=== PATIENT | female | born 1985 | race Caucasian/White ===

== ENCOUNTER 2022-10-20 09:16 | Emergency (ER) | payer OTHER ==
[~2022-10-20] VITALS: Ht 160 cm; Wt 73.5 kg
[2022-10-20 09:26] VITALS: BP 135/92
--- NOTE | 2022-10-20 09:35 | NUR ---
PT AMBULATED TO ROOM 8
--- NOTE | 2022-10-20 09:36 | NUR ---
MD PEREZ AT BEDSIDE FOR EVALUATION
--- NOTE | 2022-10-20 09:41 | NUR ---
pt swabbed for covid(derrick). handed to lab
--- NOTE | 2022-10-20 09:46 | NUR ---
37YO FEMALE PT C/O COUGH, FEVER, BODY ACHES , CHEST AND ABDOMINAL PAIN X5DAYS. CHEST PAIN W/O RADIATION AND AT MOST WHEN COUGHING OR DEEP INHALATION. ABDOMEN NON TENDER OR DISTENDED. MILD RELIEF AFTER IBUPROFEN , THERAFLU AND OLD RX OF AMOXICIILIN. DRY COUGH PRESENT. CLEAR ALICE LUNG. DENIES N/V/D, CHILLS OR SOB. +FAM SICK AT HOME. PT AAOX4, RESPIRATIONS EVEN AND UNLABORED. 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
--- NOTE | 2022-10-20 09:48 | NUR ---
XRAY AT BEDSIDE
[2022-10-20] MEDS ORDERED: PROM118S5 PO (10:31)
--- NOTE | 2022-10-20 10:35 | NUR ---
Patient discharged with v/s stable. Written and verbal after care instructions FOR VIRAL ILLNESS given and explained. Patient alert, oriented and verbalized understanding of instructions. Ambulatory with steady gait. All questions addressed prior to discharge. ID band removed. Patient advised to follow up with PMD. Rx of PROMETHAZINE given. Opportunity to ask questions provided and answered.
--- NOTE | 2022-10-20 10:36 | NUR ---
The patient's care was reviewed and supervised by Elsa Deshpande RN.
== END 2022-10-20 10:35 | disposition home or self-care (01) ==
LOC: MED 09:16
DX: B34.9 Viral infection, unspecified (principal); Z20.822 Contact with and (suspected) exposure to COVID-19; F17.200 Nicotine dependence, unspecified, uncomplicated; Z90.49 Acquired absence of other specified parts of digestive tract
CPT/HCPCS: 71045; 87426; 99284; Q0092

== ENCOUNTER 2022-12-19 06:47 | Emergency (ER) | payer OTHER ==
[~2022-12-19] VITALS: Ht 160 cm; Wt 74.8 kg
[~2022-12-19 06:47] MED LIST: PROM118S5 PO
[2022-12-19 06:51] VITALS: BP 133/85
--- NOTE | 2022-12-19 06:55 | NUR ---
PT TO 3
--- NOTE | 2022-12-19 07:04 | NUR ---
Patient being evaluated by physician at bedside.
[2022-12-19] MEDS ORDERED: KETOROLAC 60 MG/2 ML VIAL IM ONE (07:10)
--- NOTE | 2022-12-19 07:18 | NUR ---
Report given to Cassidy ESPINOZA for transfer of care
--- NOTE | 2022-12-19 07:36 | NUR ---
strep swabbed at this time
--- NOTE | 2022-12-19 07:40 | NUR ---
pt given water at this time
[2022-12-19] MEDS ORDERED: PENI500T20 PO (09:44)
[2022-12-19] MEDS ORDERED: ACET-8905 PO (09:44)
[2022-12-19] MEDS ORDERED: DEXAMETHASONE 10 MG/ML VIAL IM ONE (09:45)
[2022-12-19 10:38] VITALS: BP 133/85
--- NOTE | 2022-12-19 10:40 | NUR ---
Patient discharged with v/s stable. Written and verbal after care instructions given and explained. Patient alert, oriented and verbalized understanding of instructions. Ambulatory with steady gait. All questions addressed prior to discharge. ID band removed. Patient advised to follow up with PMD. Rx of hydrocodone, penicillin (sent) given. Patient educated on indication of medication including possible reaction and side effects. Opportunity to ask questions provided and answered. school note given, copy of labs given.
== END 2022-12-19 10:38 | disposition home or self-care (01) ==
LOC: MED 06:47
DX: J03.00 Acute streptococcal tonsillitis, unspecified (principal); R50.9 Fever, unspecified; R51.9 Headache, unspecified; F17.200 Nicotine dependence, unspecified, uncomplicated
CPT/HCPCS: 87081; 96372; 99284; J1100; J1885